=== PATIENT | male | born 1975 | race Caucasian/White ===

== ENCOUNTER 2017-03-06 17:46 | Emergency (ER) | payer SELFPAY ==
[~2017-03-06] VITALS: Wt 109.0 kg
[2017-03-06] MEDS ORDERED: HYDROCODONE/APAP (5/325) TAB PO ONE (18:30)
[2017-03-06 18:34] LABS: URINE BLOOD (Dip) POC Negative (NEGATIVE)
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
[2017-03-06] MEDS ORDERED: CYCL-319 PO (20:13)
[2017-03-06] MEDS ORDERED: NAPR-260 PO (20:13)
[2017-03-06] MEDS ORDERED: HYDR-906 PO (20:14)
[2017-03-06 20:20] VITALS: BP 131/71; PULSE 67; RESP 18; TEMP 98
[2017-03-07 16:09] LABS: URINE BLOOD (Dip) POC Negative (NEGATIVE)
== END 2017-03-06 20:20 | disposition home or self-care (01) ==
LOC: FTE 17:46
DX: S49.92XA Unspecified injury of left shoulder and upper arm, initial encounter (principal); S19.9XXA Unspecified injury of neck, initial encounter; S39.92XA Unspecified injury of lower back, initial encounter; E11.9 Type 2 diabetes mellitus without complications; V49.40XA Driver injured in collision with unspecified motor vehicles in traffic accident, initial encounter
CPT/HCPCS: 72040; 72100; 73030; 81003